=== PATIENT | female | born 1945 | race Caucasian/White ===

== ENCOUNTER 2016-04-19 12:53 | Emergency (ER) | payer OTHER ==
[~2016-04-19] VITALS: Ht 154.9 cm; Wt 94.3 kg
[~2016-04-19 12:53] MED LIST: ALBUTEROL0.09 MG/A1 INH; ASPIRIN81 M4 PO; CEFAZOLIN1 G1 IV; CIPRO500 M1 PO; CIPROFLOXACIN500 MG PO; COUMADIN 1 MG TA1 MG PO; CYMBALTA60 M1 PO; DILTIAZEM HCL240 MG PO; FLAGYL500 MG PO; JANTOVEN4 MG PO; JANTOVEN6 MG PO; LEVEMIR FL300 UNITS/ SC; LEVEMIR FLEX100 U/M1 SC; LEVEMIR100 UNIT/1 SC; LIPITOR20 M2 PO; LOPRESSOR50 M1 PO; LOSARTAN POTAS100 M1 PO; MAG-OX 400400 MG PO; METFORMIN HCL850 M1 PO; MYCOSTATIN POWD15 GM TOP; NOVOLOG 10300 UNITS/ SC; NOVOLOG100 U/ML SC; NOVOLOG100 UNIT/2 SC; PERCOCET 325 MG1 TA2 PO; PERCOCET 5-3251 EACH PO; TYLENOL #31 TAB PO; XARELTO20 M2 PO
--- NOTE | 2016-04-19 14:22 | ED GI/GU/ABDOMINAL COMPLAINT ---
History of Present Illness General Chief Complaint: Abdominal Pain/Flank Pain Stated Complaint: LFT LOWER ABD PAIN Source: patient, family, old records Exam Limitations: no limitations Vital Signs & Intake/Output Vital Signs & Intake/Output Vital Signs Date Time Temp Pulse Resp B/P Pulse O2 O2 Flow FiO2 Ox Delivery Rate 04/19 1530 98.2 103 18 130/80 96 Room Air 04/19 1259 96.4 121 18 92/61 97 Room Air Allergies Coded Allergies: Penicillins (Mild, RASH 09/09/15) Reconcile Medications Aspirin (Aspirin*) 81 MG TAB.CHEW 1 TAB PO DAILY heart (Reported) Atorvastatin Calcium (Lipitor) 20 MG TABLET 1 TAB PO DAILY CHOLESTEROL ( Reported) Duloxetine HCl (Cymbalta) 60 MG CAPSULE.DR 1 CAP PO DAILY PAIN & DEPRESSION ( Reported) Insulin Aspart (Novolog) 100 UNIT/1 ML VIAL 0 UNITS SC TIDAC/HS DIABETES MELLITUS BEFORE MEAL: LESS TAHN 80MG/DL: 0 UNITS 80-100MG/DL: 7 UNITS 101-120MG/DL: 7 UNITS 121-150MG/DL: 7 UNITS 151-200MG/DL: 8 UINITS 201-250MG/DL: 10 UNITS 251-300MG/DL: 12 UNITS 301-350MG/DL: 14 UNITS 351-400MG/DL: 16 UNITS > 400MG/DL: 18 UNITS AND CALL Insulin Detemir (Levemir) 100 UNIT/1 ML VIAL 16 UNITS SC BID DIABETES MELLITUS Losartan Potassium 100 MG TABLET 1 TAB PO DAILY BP (Reported) Metformin HCl 850 MG TABLET 1 TAB PO BID DIABETES (Reported) Metoprolol Tartrate (Lopressor) 50 MG TABLET 1.5 TAB PO BID BP (Reported) Rivaroxaban (Xarelto) 20 MG TABLET 1 TAB PO QPM blood thinner (Reported) Reason to Stop at ADM: hold for abcess surgery Triage Note: PT STATES A COUPLE OF WEEKS AGO SHE COUGHED HARD AND NOW SHE HAS BRUISING IN HER LOWER LEFT SIDE. PT IS TAKING XARELTO BUT HAS NOT TAKEN IT IN 2 WEEKS. PT REPORTS THAT SHE DID TAKE IT LAST NIGHT. PT HAVING PAIN IN LEFT HIP AND GROIN AREA WITH MOVEMENT Triage Nurses Notes Reviewed? yes ? n Is pt currently ? No Onset: Abrupt Duration: day(s): (1), constant Timing: single episode today Quality/Severity: no pain Severity Numbers: 1 Location: suprapubic Radiation: no radiation Activities at Onset: coughing No Modifying Factors: none Associated Symptoms: denies HPI: This is a 70-year-old female who presents with family for evaluation complaining atraumatic nonpainful bruising over her suprapubic and that she noticed last night. The patient states that she had an episode of bronchitis for which she was on antibiotics at the time 2 weeks ago. She denies any abdominal pain nausea vomiting diarrhea no urinary symptoms hematuria urgency frequency. The patient is on xarelto for afib over states she did not take her medicine until last night and states she was without it for the past 1 week. When questioned as to why she stated "I don't feel it taking it" she denies any chest pain palpitations shortness of breath. She had blood work performed yesterday as an outpatient with her primary care physician Dr. barrios however does not know the results. (MILI VAUGHN) Past History Travel History Traveled to [place] past 21 day No Medical History Any Pertinent Medical History? see below for history Neurological: NONE EENT: NONE Cardiovascular: AFIB, CAD, hypertension, hyperlipidemia, STENT Respiratory: NONE Gastrointestinal: NONE Hepatic: NONE Renal: NONE Musculoskeletal: osteoarthritis, s/p hip replacement Psychiatric: NONE Endocrine: diabetes Blood Disorders: NONE Cancer(s): NONE CORE FITTER/Reproductive: NONE History of MRSA: No History of VRE: No History of CDIFF: No Surgical History Surgical History: hx of previous rectal abcess Psychosocial History Who do you live with Patient/Self Services at Home None What is your primary language Togolese Tobacco Use: Quit >30 days ago ETOH Use: denies use Illicit Drug Use: denies illicit drug use Family History Family History, If Any: MOTHER FH: Alzheimers disease FATHER FH: diabetes mellitus FH: myocardial infarction Hx Contributory? No (MILI VAUGHN) Review of Systems Review of Systems Constitutional: Reports: see HPI. All Other Systems: Reviewed and Negative Comments Review of systems: See HPI, All other systems negative. Constitutional, no chills no fever, no malaise HEENT: No visual changes no sore throat no congestion Cardiovascular: No chest pain , no palpitation Skin no rashes, no change in skin Respiratory: No dyspnea no cough no sputum GI: No nausea no vomiting, no diarrhea, : No dysuria Muscle skeletal: No joint pain, no joint swelling, no back pain, no neck pain, Neurologic: No numbness no confusion, no headache Psych: No stress Heme/endocrine: No bruising no bleeding Immunology: No lymphadenopathy, (MILI VAUGHN) Physical Exam Physical Exam General Appearance: well developed/nourished, alert, awake Gastrointestinal: normal bowel sounds, soft, non-tender Comments: Well-developed well-nourished person in no acute distress HEENT: Normal EENT exam; PERRL, EOMI, HEAD is atraumatic. moist mucous membranes. Neck: Supple,normal range of motion Back: Nontender, no CVA tenderness. Full range of motion Cardiovascular: Regular rate and rhythms no murmurs rubs Respiratory: No respiratory distress. Patient speaking in full complete sentences. Breath sounds clear to auscultation bilaterally: NO W/R/R Abdomen: Soft, obese, 2 areas of ecchymosis lcoalized to the suprapubic and L lateral hip, nontnender nontender nondistended, no appreciable organomegaly. Normal bowel sounds. No rebound/guarding, No appreciable enlargement of the abdominal aorta, No ascites. upper Extremity: No edema, full range of motion of extremities Hip/Pelvis: Atraumatic/Stable. FROM. No pain with pelvic compression Knee: Atraumatic/stable. FROM. No joint swelling, no effusion. No laxity. No pain with ROM Leg: Atraumatic. Nontender. No edema, 5 out of 5 strength in the lower extremity, normal dorsiflexion of great toe bilaterally, gross sensation is intact Ankle/Foot: Atraumatic/stable. Skin intact. FROM. No swelling, no effusion. No laxity on exam Pulses: Normal/equal DP/PT pulses bilaterally. Brisk cap refill Neuro: Alert oriented x3, motor sensory normal, There were no obvious focal neurologic abnormalities. Skin: No appreciable rash on exposed skin, skin is warm and dry. Psych: Mood and affect is normal, memory and judgment is normal. Core Measures ACS in differential dx? No Severe Sepsis Present: No Septic Shock Present: No (MILI VAUGHN) Progress Differential Diagnosis: retroperitoneal hematoma. , hematoma, uti, electrolyte abnormality Plan of Care: Orders Procedure Date/time Status EKG 04/19 1300 Active Old records reviewed CAT scan ordered. Patient's lab results which were performed yesterday here were reviewed the patient's sodium of 129 and is unchanged from her previous discussed with her at length all of her lab results she denies any chest pain or shortness of breath case d/w dr lobato d/w the pt and her daughter her ct results. need for close f/u with her pmd, return with any concerns. again pt is amb with steady gait cleared for dc (BILLY CA,MILI) Diagnostic Imaging: Viewed by Me: CT Scan. Discussed w/RAD: CT Scan. Radiology Impression: PATIENT: SALMA ODOM PRESENT AGE: 70 PATIENT ACCOUNT NO: [id number] : 43 LOCATION: [facility] ORDERING PHYSICIAN: MILI CA SERVICE DATE: 04/19/16 EXAM TYPE: CAT - CT ABD & PELVIS W/O IV CONTRAS EXAMINATION: CT ABDOMEN AND PELVIS WITHOUT CONTRAST CLINICAL INFORMATION: Left hip and buttock pain with ecchymoses. No known injury. COMPARISON: CT abdomen and pelvis 09/09/2015. TECHNIQUE: Multidetector volumetric imaging was performed from the superior aspect of the liver through the pubic symphysis. Sagittal and coronal reformatted images were obtained on the technologist's workstation. DLP: 1294.11 mGy-cm FINDINGS: LUNG BASES: The visualized lung bases are unremarkable. Marked coronary calcifications are present. LIVER, GALLBLADDER, AND BILIARY TREE: The liver is normal in size, shape, and attenuation. No focal hepatic lesion or biliary ductal dilatation is present. Gallstones are present. PANCREAS: Unremarkable. SPLEEN: Unremarkable. ADRENAL GLANDS: Unremarkable. KIDNEYS AND URETERS: The kidneys are normal in size, shape, and attenuation. No hydronephrosis, hydroureter, or calculi seen. No perinephric stranding. BLADDER: Unremarkable. GASTROINTESTINAL TRACT: The small and large bowel are unremarkable. The appendix is unremarkable. ABDOMINAL WALL: A small rectus sheath hematoma is present on the left that measures 5.9 x 4.0 x 6.8 cm. Surgical clips are noted behind the abdominal wall. There is evidence of subcutaneous heparin administration. An open wound appears to be present in the lower abdomen. LYMPH NODES: Normal. VASCULAR: Marked aortoiliac calcifications are noted. PELVIC VISCERA: An anteverted uterus is present. No abnormal pelvic mass is seen. OSSEOUS STRUCTURES: Severe degenerative changes present in the visualized thoracic spine and lumbar spine with destruction of the T10-T9 disc space. Findings are unchanged when compared to the prior study. Marked scoliosis convex to the right. Left total hip prosthesis present. IMPRESSION: Left lower quadrant rectus sheath hematoma. DICTATED BY: EYAD AVILA MD DATE/TIME DICTATED:04/19/161503 ASSISTANT DEAN:HENNY DATE/TIME TRANSCRIBED:04/19/161503 CONFIDENTIAL, DO NOT COPY WITHOUT APPROPRIATE AUTHORIZATION. <Electronically signed in Other Vendor System> SIGNED BY: EYAD AVILA MD 04/19/16 1532 Initial ED EKG: a. FIB AT 100, NO ACUTE st SEGMENT CHANGES NORMAL AXIS Prior EKG: unchanged (08/2015) (MILI VAUGHN) Departure Departure Time of Disposition: 1546 Disposition: HOME OR SELF CARE Condition: Stable Clinical Impression Primary Impression: Abdominal wall hematoma Referrals: LOU BARRIOS MD (PCP/Family) Additional Instructions: Follow-up with your primary care physician this week. Continue taking all of your medications as prescribed return with any concerns Departure Forms: Customer Survey General Discharge Information (MILI VAUGHN) PA/DIESEL ENGINEER Co-Sign Statement Statement: ED Attending supervision documentation- [X] I saw and evaluated the patient. I have also reviewed all the pertinent lab results and diagnostic results. I agree with the findings and the plan of care as documented in the PA's/DIESEL ENGINEER's documentation. [X] I have reviewed the ED Record and agree with the PA's/DIESEL ENGINEER's documentation. [] Additions or exceptions (if any) to the PAs/DIESEL ENGINEER's note and plan are summarized below: [] (WILLIE MONTIEL,NOAH)
[2016-04-19 15:30] VITALS: BP 130/80
--- NOTE | 2016-04-19 15:32 | CT SCAN REPORT ---
EXAMINATION: CT ABDOMEN AND PELVIS WITHOUT CONTRAST CLINICAL INFORMATION: Left hip and buttock pain with ecchymoses. No known injury. COMPARISON: CT abdomen and pelvis 09/09/2015. TECHNIQUE: Multidetector volumetric imaging was performed from the superior aspect of the liver through the pubic symphysis. Sagittal and coronal reformatted images were obtained on the technologist's workstation. DLP: 1294.11 mGy-cm FINDINGS: LUNG BASES: The visualized lung bases are unremarkable. Marked coronary calcifications are present. LIVER, GALLBLADDER, AND BILIARY TREE: The liver is normal in size, shape, and attenuation. No focal hepatic lesion or biliary ductal dilatation is present. Gallstones are present. PANCREAS: Unremarkable. SPLEEN: Unremarkable. ADRENAL GLANDS: Unremarkable. KIDNEYS AND URETERS: The kidneys are normal in size, shape, and attenuation. No hydronephrosis, hydroureter, or calculi seen. No perinephric stranding. BLADDER: Unremarkable. GASTROINTESTINAL TRACT: The small and large bowel are unremarkable. The appendix is unremarkable. ABDOMINAL WALL: A small rectus sheath hematoma is present on the left that measures 5.9 x 4.0 x 6.8 cm. Surgical clips are noted behind the abdominal wall. There is evidence of subcutaneous heparin administration. An open wound appears to be present in the lower abdomen. LYMPH NODES: Normal. VASCULAR: Marked aortoiliac calcifications are noted. PELVIC VISCERA: An anteverted uterus is present. No abnormal pelvic mass is seen. OSSEOUS STRUCTURES: Severe degenerative changes present in the visualized thoracic spine and lumbar spine with destruction of the T10-T9 disc space. Findings are unchanged when compared to the prior study. Marked scoliosis convex to the right. Left total hip prosthesis present. IMPRESSION: Left lower quadrant rectus sheath hematoma.
== END 2016-04-19 15:56 ==
LOC: ERH 12:53
DX: M79.81 Nontraumatic hematoma of soft tissue (principal)
CPT/HCPCS: 74176; 93005; 93010

== ENCOUNTER 2016-06-30 19:55 | Emergency (ER) | payer OTHER ==
[2016-06-30 20:09] VITALS: BP 142/77
[2016-06-30] MEDS ORDERED: METFORMIN HCL1000 M1 PO (20:27)
[2016-06-30] MEDS ORDERED: NOVOLOG100 UNIT/2 SC (20:30)
--- NOTE | 2016-06-30 21:36 | ED GENERAL ADULT ---
History of Present Illness General Chief Complaint: General Adult Stated Complaint: PT IS NOT GONE TO THE BATHROOM Source: patient, family Exam Limitations: no limitations Vital Signs & Intake/Output Vital Signs & Intake/Output Vital Signs Date Time Temp Pulse Resp B/P B/P Pulse O2 O2 Flow FiO2 Mean Ox Delivery Rate 06/30 2038 94 06/30 Room Air 06/30 2008 97.0 110 22 142/77 ED Intake and Output 07/01 0000 06/30 1200 Intake Total Output Total Balance Number 2 Bowel Movements Allergies Coded Allergies: Penicillins (Mild, RASH 09/09/15) Reconcile Medications Aspirin (Aspirin*) 81 MG TAB.CHEW 1 TAB PO DAILY heart (Reported) Atorvastatin Calcium (Lipitor) 20 MG TABLET 1 TAB PO DAILY CHOLESTEROL ( Reported) Duloxetine HCl (Cymbalta) 60 MG CAPSULE.DR 1 CAP PO DAILY PAIN & DEPRESSION ( Reported) Insulin Aspart (Novolog) 100 UNIT/ML VIAL DM (Reported) Insulin Detemir (Levemir) 100 UNIT/1 ML VIAL 16 UNITS SC BID DIABETES MELLITUS Losartan Potassium 100 MG TABLET 1 TAB PO DAILY BP (Reported) Metformin HCl 1,000 MG TABLET 1 TAB PO BID DM (Reported) Metoprolol Tartrate (Lopressor) 50 MG TABLET 1.5 TAB PO BID BP (Reported) Rivaroxaban (Xarelto) 20 MG TABLET 1 TAB PO QPM blood thinner (Reported) Reason to Stop at ADM: hold for abcess surgery Triage Note: PER PT UNABLE TO MOVE BOWELS RIGHT THERE BUT CANT GET IT OUT, TOOK A FLEETS AND 3 DUCOLAX. LAST BM 2 DAYS AGO Triage Nurses Notes Reviewed? yes Onset: Gradual Duration: day(s): Timing: recent history HPI: 06/30/16 10:28 PM 70-year-old female presents to the emergency department for constipation and perirectal pain. The patient says history of multiple abdominal surgeries. She comes in with feeling that she had a hard impacted stool in her rectum. She had no bowel movement since the last 48 hours. She did give herself a Fleet enema and had a bowel movement just prior to me examining her. On physical exam her abdomen is soft and nontender. She does have multiple surgical scars on her abdomen. The patient had initially had no bowel movement, after the fleets enema, she had a bowel movement in the ED and was requesting to leave before evaluation. Rectal exam she has an anal fissure and external hemorrhoids. She had soft stool in the vault. She was manually disimpacted by me with viscous lidocaine. She felt much more comfortable. She will be discharged and follow- up with her doctor on Sunday or return to the emergency department if worse. She has no vomiting. She has no abdominal pain. No vomiting. Shared decision-making was utilized in her care. Past History Travel History Traveled to [place] past 21 day No Medical History Any Pertinent Medical History? see below for history Neurological: NONE EENT: NONE Cardiovascular: AFIB, CAD, hypertension, hyperlipidemia, STENT Respiratory: NONE Gastrointestinal: NONE Hepatic: NONE Renal: NONE Musculoskeletal: osteoarthritis, s/p hip replacement Psychiatric: NONE Endocrine: diabetes Blood Disorders: NONE Cancer(s): NONE RESOURCES REPRESENTATIVE/Reproductive: NONE History of MRSA: No History of VRE: No History of CDIFF: No Surgical History Surgical History: hx of previous rectal abcess Psychosocial History Who do you live with Patient/Self Services at Home None What is your primary language Yakut Tobacco Use: Never used Family History Family History, If Any: MOTHER FH: Alzheimers disease FATHER FH: diabetes mellitus FH: myocardial infarction Hx Contributory? No Review of Systems Review of Systems Constitutional: Denies: fever. EENTM: Reports: no symptoms. Respiratory: Denies: short of breath. Cardiovascular: Denies: chest pain. GI: Reports: constipation. Denies: abdominal pain, vomiting. Genitourinary: Reports: no symptoms. Musculoskeletal: Reports: no symptoms. Skin: Denies: rash. Neurological/Psychological: Reports: no symptoms. Hematologic/Endocrine: Reports: no symptoms. Physical Exam Physical Exam General Appearance: alert, awake, anxious, mild distress Head: atraumatic, normal appearance Eyes: Bilateral: normal appearance, PERRL, EOMI. Ears, Nose, Throat: normal ENT inspection Neck: supple Respiratory: chest non-tender, no respiratory distress Cardiovascular: regular rate/rhythm Gastrointestinal: soft, non-tender Rectal: heme negative stool, hemorrhoids, anal fissure, no significant tenderness, no flocculence Extremities: pedal edema Neurologic/Psych: no motor/sensory deficits, awake, alert, oriented x 3 Skin: intact, normal color Core Measures ACS in differential dx? No CVA/TIA Diagnosis: No Severe Sepsis Present: No Septic Shock Present: No Progress Differential Diagnoses I considered the following diagnoses in my evaluation of the patient: [ Perirectal abscess, rectal abscess, obstipation, bowel obstruction, anal fissure , hemorrhoids] Plan of Care: Tucks pads, Dulcolax, return if pain, vomiting or worsening any way. Initial ED EKG: none Departure Departure Disposition: HOME OR SELF CARE Condition: Stable Clinical Impression Primary Impression: Constipation Secondary Impressions: Anal fissure, Hemorrhoid Referrals: LOU ELKINS MD (PCP/Family) Departure Forms: Customer Survey General Discharge Information Comments The patient had another bowel movement in the ED. Disimpaction was performed with viscous lidocaine. The patient tolerated it well. She was told to return to the emergency department should she have fever abdominal pain or if her rectal pain was worse. She was told to follow-up with her doctor on Sunday. 07/01/16 9:36 am The patient was called at home. She is having further bowel movements with no pain. She was told that should she have any pain or fever to return to the emergency department. She says she is feeling much better and will return immediately if she has pain. Critical Care Note Critical Care Note Critical Care Time: non-applicable
== END 2016-06-30 22:53 ==
LOC: ERH 19:55
DX: K59.00 Constipation, unspecified (principal); K60.2 Anal fissure, unspecified; K64.9 Unspecified hemorrhoids